=== PATIENT | male | born 1950 | race Caucasian/White ===

== ENCOUNTER 2017-05-19 05:36 | Inpatient (IN) | payer MEDICARE ==
[2017-05-11 12:03] LABS: PRE OP PROTIME 10.1 SECONDS (9.0-12.0)
[~2017-05-19] VITALS: Ht 172.7 cm; Wt 105.1 kg
[2017-05-19] VITALS (18 sets, daily range): BP systolic 89–145; BP diastolic 44–93
[~2017-05-19 05:36] MED LIST: LOSA50TA3 PO; VANCOMYCIN INJ 1000 MG in NORMAL SALINE 250ml IV.SOLN IV ONE; cefazolin/dext.iso 2gm/50ml 50 ML IV ONE; famotidine 20mg tablet PO ONE; ringers solution, lacted 1,000 ML IV SCH
[2017-05-19] MEDS ORDERED: LIDOcaine 1% (10mg/ml) 2ml vial ONE (06:12)
[2017-05-19] MEDS ORDERED: ketorolac trometh. 30mg/ml inj. ONE (06:39)
[2017-05-19] MEDS ORDERED: ROPIVAcaine 0.5% (5mg/ml) 30ml vial ONE ×2 (06:39→07:21)
[2017-05-19] MEDS ORDERED: cloNIDine hcl/PF 100mcg/ml inj ONE (07:21)
[2017-05-19] MEDS ORDERED: tetracaine 1% (10mg/ml) pres. free inj. ONE (07:22)
[2017-05-19] MEDS ORDERED: fentaNYL/PF 50MCG/1 ML 2ML syringe ONE (07:27)
[2017-05-19] MEDS ORDERED: MIDAZolam 1mg/ml 10ml vial ONE (07:27)
[2017-05-19] MEDS ORDERED: MORPHINE SULFATE/PF 0.5 MG/ML 10ML AMPUL ONE (07:27)
[2017-05-19] MEDS ORDERED: propofol inj 20 ML IV ONE (08:14)
[2017-05-19] MEDS ORDERED: naloxone 2mg/2ml inj 2 MG in normal saline 500ml IV soln 500 ML IV PRN (08:48)
[2017-05-19] MEDS ORDERED: ringers solution, lacted 1,000 ML IV SCH (08:48)
[2017-05-19] MEDS ORDERED: proCHLORperazine 10 MG/2 ml inj IV PRN (08:50)
[2017-05-19] MEDS ORDERED: ondansetron/PF 4mg/2ml inj IV PRN ×3 (08:50→11:25)
[2017-05-19] MEDS ORDERED: morphine 2 MG/ML inj. syringe IV PRN ×3 (08:50→13:20)
[2017-05-19] MEDS ORDERED: meperidine/PF 25mg/ml syringe IV PRN ×3 (08:50)
[2017-05-19] MEDS ORDERED: diphenhydrAMINE 50 mg/ml inj IV PRN (08:50)
[2017-05-19] MEDS ORDERED: ceFAZolin 1000mg inj ONE (11:16)
[2017-05-19] MEDS ORDERED: diphenhydrAMINE 25mg capsule PO PRN ×2 (11:25)
[2017-05-19] MEDS ORDERED: bisacodyl 10mg suppository rectal RC PRN (11:25)
[2017-05-19] MEDS ORDERED: HYDROcodone/acetaminophen 10/325mg tab PO PRN ×3 (11:25→13:20)
[2017-05-19] MEDS ORDERED: metoclopramide 5 mg/ml inj IV PRN (11:25)
[2017-05-19] MEDS ORDERED: naloxone 0.4 mg/ml inj IV PRN (11:25)
[2017-05-19] MEDS ORDERED: magnesium hydroxide 30ml (MOM) UD suspension PO PRN (11:25)
[2017-05-19] MEDS ORDERED: mag hydrox/Alum hydrox/simeth 30ml oral suspension PO PRN (11:25)
[2017-05-19] MEDS ORDERED: HYDROmorphone/NS 1 mg/ml CADD 50 ML IV SCH (11:25)
[2017-05-19] MEDS ORDERED: acetaminophen 325mg tablet PO PRN (11:25)
[2017-05-19] MEDS ORDERED: CADD PCA waste documentation MC PRN (11:25)
[2017-05-19] MEDS: gabapentin 300mg capsule PO SCH ×2 (13:44→19:25)
[2017-05-19] MEDS: potassium cl 20mEq in 1/2 NS 1,000 ML IV SCH ×3 (13:45→23:56)
[2017-05-19] MEDS: cefazolin 1gm/NS 100mL 100 ML IV SCH ×2 (15:25→23:53)
[2017-05-19] MEDS: ascorbic acid 500mg tablet PO SCH (19:25)
[2017-05-19] MEDS: celeCOXIB 100mg capsule PO SCH (19:25)
[2017-05-19] MEDS: HYDROcodone/acetaminophen 10/325mg tab PO PRN (19:26)
[2017-05-19] MEDS ORDERED: sennosides/docusate sodium tablet PO SCH (20:00)
[2017-05-19] MEDS ORDERED: vancomycin/NS 1 GM ADD-VANTAGE 250 ML IV SCH (20:00)
[2017-05-19] MEDS: sennosides 8.6mg tablet PO SCH (22:52)
[2017-05-20 01:45] VITALS: BP 110/69
[2017-05-20] MEDS: HYDROcodone/acetaminophen 10/325mg tab PO PRN ×3 (05:11→20:08)
[2017-05-20 06:00] VITALS: BP 122/66
[2017-05-20 06:27] LABS: BASOPHILS % (AUTO) 0.4 % (0-1); EOSINOPHILS # (AUTO) 0.1 X10'3 (0-0.9); EOSINOPHILS % (AUTO) 1.8 % (0-6); HEMATOCRIT 31.5 % (42.0-52.0); MEAN CORPUSCULAR HEMOGLOBIN 31.9 PG (27.0-31.0); MEAN CORPUSCULAR VOLUME 91.1 FL (78-98); MEAN PLATELET VOLUME 6.2 FL (7.4-10.4); MONOCYTES # (AUTO) 0.7 X10'3 (0-0.9); MONOCYTES % (AUTO) 10.4 % (2-12); NEUTROPHILS # (AUTO) 3.7 X10'3 (1.8-7.7); NEUTROPHILS % (AUTO) 56.4 % (42-75); PLATELET COUNT 179 X10'3 (140-440); RED BLOOD COUNT 3.46 X10'6 (4.70-6.10); RED CELL DISTRIBUTION WIDTH 13.3 % (11.5-14.5); WHITE BLOOD COUNT 6.6 X10'3 (4.5-11.0)
[2017-05-20 06:49] LABS: ANION GAP 5 (8-16); CHLORIDE 106 MMOL/L (99-107); POTASSIUM 4.2 MMOL/L (3.5-5.1); SODIUM 140 MMOL/L (135-145); TOTAL CARBON DIOXIDE 28.7 MMOL/L (24-32)
[2017-05-20] MEDS: multivitamins, therapeutics tablet PO SCH (07:25)
[2017-05-20] MEDS: losartan 50mg tablet PO SCH (07:25)
[2017-05-20] MEDS: gabapentin 300mg capsule PO SCH ×3 (07:25→20:06)
[2017-05-20] MEDS: enoxaparin 40mg/0.4ml syringe SQ SCH (07:26)
[2017-05-20] MEDS: ascorbic acid 500mg tablet PO SCH ×2 (07:26→20:08)
[2017-05-20] MEDS: celeCOXIB 100mg capsule PO SCH ×2 (07:26→20:06)
[2017-05-20] MEDS ORDERED: HYDR-3972 PO (08:03)
[2017-05-20] MEDS ORDERED: ENOX40DI11 SQ (08:03)
[2017-05-20] MEDS ORDERED: WALKERFR (08:04)
[2017-05-20 10:00] VITALS: BP 117/69
[2017-05-20] MEDS ORDERED: FLU VACC QS2017-18 36MOS UP/PF 60 MCG/0.5 ML SYRINGE IMVAC ONE (10:00)
[2017-05-20] MEDS ORDERED: pneumococcal 23-VAL P-sac vacc 25 mcg/0.5ml vial IMVAC ONE (10:00)
[2017-05-20] MEDS: potassium cl 20mEq in 1/2 NS 1,000 ML IV SCH (10:06)
[2017-05-20 13:58] VITALS: BP 127/67
[2017-05-20 18:35] VITALS: BP 116/69
[2017-05-20] MEDS: sennosides 8.6mg tablet PO SCH (20:06)
[2017-05-20 22:00] VITALS: BP 136/78
[2017-05-21] MEDS: HYDROcodone/acetaminophen 10/325mg tab PO PRN ×2 (05:44→09:55)
[2017-05-21 06:00] VITALS: BP 133/81
[2017-05-21 06:43] LABS: BASOPHILS % (AUTO) 0.3 % (0-1); EOSINOPHILS # (AUTO) 0.2 X10'3 (0-0.9); EOSINOPHILS % (AUTO) 2.4 % (0-6); HEMATOCRIT 31.1 % (42.0-52.0); LYMPHOCYTES % (AUTO) 30.9 % (21-51); MEAN CORPUSCULAR HEMOGLOBIN 31.9 PG (27.0-31.0); MEAN CORPUSCULAR HGB CONC 35.3 % (33.0-36.5); MEAN CORPUSCULAR VOLUME 90.4 FL (78-98); MEAN PLATELET VOLUME 6.6 FL (7.4-10.4); MONOCYTES # (AUTO) 0.6 X10'3 (0-0.9); MONOCYTES % (AUTO) 9.2 % (2-12); NEUTROPHILS # (AUTO) 3.8 X10'3 (1.8-7.7); NEUTROPHILS % (AUTO) 57.2 % (42-75); PLATELET COUNT 186 X10'3 (140-440); RED BLOOD COUNT 3.44 X10'6 (4.70-6.10); RED CELL DISTRIBUTION WIDTH 13.7 % (11.5-14.5); WHITE BLOOD COUNT 6.6 X10'3 (4.5-11.0)
[2017-05-21] MEDS: celeCOXIB 100mg capsule PO SCH (08:23)
[2017-05-21] MEDS: multivitamins, therapeutics tablet PO SCH (08:24)
[2017-05-21] MEDS: losartan 50mg tablet PO SCH (08:24)
[2017-05-21] MEDS: gabapentin 300mg capsule PO SCH (08:24)
[2017-05-21] MEDS: ascorbic acid 500mg tablet PO SCH (08:24)
[2017-05-21] MEDS: enoxaparin 40mg/0.4ml syringe SQ SCH (08:25)
[2017-05-21 10:30] VITALS: BP 134/73
== END 2017-05-21 13:00 | disposition home or self-care (01) | DRG 470 ==
LOC: PAS IN 05:36 → EDSTATUS 09:30 → ORTHO 4S 12:54
PROVIDERS: ADMIT Orthopaedic Surgery; ATTEND Orthopaedic Surgery
PROC: 8E0YXBZ Computer Assisted Procedure of Lower Extremity (ICD-10-PCS; 2017-05-19)
PROC: 0SRC0J9 Replacement of Right Knee Joint with Synthetic Substitute, Cemented, Open Approach (ICD-10-PCS; principal; 2017-05-19 07:32)
DX: M17.11 Unilateral primary osteoarthritis, right knee (principal); D62 Acute posthemorrhagic anemia; E66.01 Morbid (severe) obesity due to excess calories; I10 Essential (primary) hypertension; Z79.899 Other long term (current) drug therapy; Z87.891 Personal history of nicotine dependence; Z68.35 Body mass index [BMI] 35.0-35.9, adult
CPT/HCPCS: 36415; 80051; 85025; 85610; 85730; 87070; 90732; 97110; 97116; 97161; A6250; A6255; A6258; A6449; A7000; C1713; C1758; C1776; J0690; J0735; J1650; J1885; J2250; J2274; J2704; J2795; J3010; J3370; J3490; J7030; J7120

== ENCOUNTER 2019-11-19 13:23 | Observation (INO) | payer MEDICARE ==
[~2019-11-19] VITALS: Ht 172.7 cm; Wt 111.8 kg
[~2019-11-19 13:23] MED LIST changes: +ENOX40DI11 SQ; +HYDR-3972 PO; -VANCOMYCIN INJ 1000 MG in NORMAL SALINE 250ml IV.SOLN IV ONE; +WALKERFR; -cefazolin/dext.iso 2gm/50ml 50 ML IV ONE; -famotidine 20mg tablet PO ONE; -ringers solution, lacted 1,000 ML IV SCH
[2019-11-19 13:50] LABS: BASOPHILS # (AUTO) 0.1 X10'3 (0-0.2); BASOPHILS % (AUTO) 0.9 % (0-1); EOSINOPHILS % (AUTO) 0.1 % (0-6); HEMATOCRIT 43.3 % (42.0-52.0); HEMOGLOBIN 14.6 g/dl (14.0-17.9); LYMPHOCYTES # (AUTO) 1.2 X10'3 (1.1-4.8); LYMPHOCYTES % (AUTO) 15.3 % (21-51); MEAN CORPUSCULAR HEMOGLOBIN 31.8 PG (27.0-31.0); MEAN CORPUSCULAR HGB CONC 33.8 g/dL (33.0-36.5); MEAN CORPUSCULAR VOLUME 94.1 FL (78-98); MEAN PLATELET VOLUME 6.6 FL (7.4-10.4); MONOCYTES # (AUTO) 0.3 X10'3 (0-0.9); MONOCYTES % (AUTO) 3.3 % (2-12); NEUTROPHILS # (AUTO) 6.5 X10'3 (1.8-7.7); NEUTROPHILS % (AUTO) 80.4 % (42-75); PLATELET COUNT 273 X10'3 (140-440); RED CELL DISTRIBUTION WIDTH 14.3 % (11.5-14.5); WHITE BLOOD COUNT 8.1 X10'3 (4.5-11.0)
[2019-11-19 13:58] LABS: ALANINE AMINOTRANSFERASE 35 U/L (12-78); ALBUMIN 3.8 G/DL (3.4-5.0); ALKALINE PHOSPHATASE 93 IU/L (46-116); ANION GAP 7 (8-16); ASPARTATE AMINO TRANSFERASE 20 U/L (10-37); BILIRUBIN,TOTAL 0.4 MG/DL (0.1-1.0); BLOOD UREA NITROGEN 20 MG/DL (7-18); BUN/CREATININE RATIO 18.7 (5.4-32.0); CALCIUM 9.1 MG/DL (8.5-10.1); CHLORIDE 104 MMOL/L (99-107); CREATININE 1.07 MG/DL (0.60-1.10); GLUCOSE 136 MG/DL (70-104); POTASSIUM 4.2 MMOL/L (3.5-5.1); SODIUM 135 MMOL/L (135-145); TOTAL CARBON DIOXIDE 23.7 MMOL/L (24-32); TOTAL PROTEIN 7.8 G/DL (6.4-8.2); eGFR 69 ML/MIN
[2019-11-19] MEDS ORDERED: morphine 2 MG/ML inj. syringe IV PRN ×2 (14:55)
[2019-11-19] MEDS ORDERED: mag hydrox/Alum hydrox/simeth 30ml oral suspension PO PRN (14:55)
[2019-11-19] MEDS ORDERED: acetaminophen 325mg tablet PO PRN (14:55)
[2019-11-19] MEDS ORDERED: ondansetron/PF 4mg/2ml inj IV PRN (14:55)
[2019-11-19] MEDS ORDERED: magnesium hydroxide 30ml (MOM) UD suspension PO PRN (14:55)
[2019-11-19] MEDS ORDERED: ASPI-611 PO (15:04)
[2019-11-19] MEDS: furosemide 20 MG/2 ML vial IV SCH ×2 (15:30→20:57)
--- NOTE | 2019-11-19 17:22 | NUR ---
Patient in room ED 5. I have received report from MOUNIKA lucas RN and had the opportunity to ask questions and assume patient care.
[2019-11-19 17:45] VITALS: BP 142/86
[2019-11-19 18:00] VITALS: BP 138/65
--- NOTE | 2019-11-19 18:15 | NUR ---
Problems reprioritized. Patient report given, questions answered & plan of care reviewed with .HELIO King
--- NOTE | 2019-11-19 18:39 | NUR ---
1745 RECEIVED PT INTO ROOM 313,ORIENTED TO SURROUNDINGS,DENIES PAIN OR DIZINESS,AGREE WITH [employer] WILL MONITER CLOSELY
[2019-11-19 20:00] VITALS: BP 138/65
[2019-11-19 22:00] VITALS: BP 112/85
[2019-11-20 02:00] VITALS: BP 118/88
[2019-11-20 02:17] LABS: BASOPHILS % (AUTO) 0.5 % (0-1); EOSINOPHILS # (AUTO) 0.1 X10'3 (0-0.9); EOSINOPHILS % (AUTO) 1.8 % (0-6); HEMATOCRIT 44.6 % (42.0-52.0); HEMOGLOBIN 15.1 g/dl (14.0-17.9); LYMPHOCYTES # (AUTO) 2.8 X10'3 (1.1-4.8); LYMPHOCYTES % (AUTO) 39.7 % (21-51); MEAN CORPUSCULAR HEMOGLOBIN 32.2 PG (27.0-31.0); MEAN CORPUSCULAR HGB CONC 33.8 g/dL (33.0-36.5); MEAN CORPUSCULAR VOLUME 95.3 FL (78-98); MEAN PLATELET VOLUME 6.3 FL (7.4-10.4); MONOCYTES # (AUTO) 0.5 X10'3 (0-0.9); MONOCYTES % (AUTO) 6.9 % (2-12); NEUTROPHILS # (AUTO) 3.5 X10'3 (1.8-7.7); NEUTROPHILS % (AUTO) 51.1 % (42-75); PLATELET COUNT 268 X10'3 (140-440); RED BLOOD COUNT 4.68 X10'6 (4.70-6.10); RED CELL DISTRIBUTION WIDTH 14.5 % (11.5-14.5)
[2019-11-20 02:34] LABS: ALBUMIN 3.7 G/DL (3.4-5.0); ANION GAP 7 (8-16); BLOOD UREA NITROGEN 20 MG/DL (7-18); BUN/CREATININE RATIO 15.7 (5.4-32.0); CALCIUM 8.7 MG/DL (8.5-10.1); CHLORIDE 102 MMOL/L (99-107); CHOL/HDL RATIO 5.3 (0.00-4.99); CHOLESTEROL 208 MG/DL (0-200); CREATININE 1.27 MG/DL (0.60-1.10); GLUCOSE 117 MG/DL (70-104); HDL CHOLESTEROL 39 MG/DL (35-60); LDL CHOLESTEROL 138 MG/DL (50-100); POTASSIUM 3.4 MMOL/L (3.5-5.1); SODIUM 137 MMOL/L (135-145); TOTAL CARBON DIOXIDE 27.6 MMOL/L (24-32); TRIGLYCERIDES 179 MG/DL (20-135); eGFR 57 ML/MIN
[2019-11-20 06:00] VITALS: BP 132/70
--- NOTE | 2019-11-20 06:30 | NUR ---
Patient in room MED 313. I have received report from Javier CADET and had the opportunity to ask questions and assume patient care.
--- NOTE | 2019-11-20 06:35 | NUR ---
Problems reprioritized. Patient report given, questions answered & plan of care reviewed with Soraida CADET.
[2019-11-20 10:00] VITALS: BP 124/83
[2019-11-20] MEDS ORDERED: FURO-150 PO (10:02)
[2019-11-20] MEDS ORDERED: magnesium Cl slow-release 64mg tablet PO PRN (10:35)
[2019-11-20] MEDS ORDERED: potassium CL 10mEq/100ml bag 100 ML IV PRN (10:35)
[2019-11-20] MEDS ORDERED: potassium Cl 20 mEq SR tablet PO PRN (10:35)
[2019-11-20] MEDS ORDERED: magnesium 4gm in 100ml NS 100 ML IV PRN (10:35)
[2019-11-20] MEDS: furosemide 20 MG/2 ML vial IV SCH (10:43)
[2019-11-20] MEDS: potassium Cl 20 mEq SR tablet PO PRN ×2 (10:55→14:53)
[2019-11-20 14:00] VITALS: BP 116/79
--- NOTE | 2019-11-20 14:44 | NUR ---
[address] [facility] [employer] stated the Carotid's were negative. [id number] ACCE Thanks
--- NOTE | 2019-11-20 15:05 | NUR ---
Discharge instructions given. Pt has remained stable, VSS, and no dizziness or syncope. IV d/c ed and had no S/S of complications. Pt stated understanding to all discharge instructions. All belongings accounted for. Pt escorted to lobby to private vehicle.
--- NOTE | 2019-11-21 10:28 | NUR ---
Case Management DC follow up: spoke to pt spouse, Suzanne, via telephone. s/p:near syncope episode Reports:"doing fine, outside splitting wood w/the wood splitter" agrees to ensure good hydration. Denies for pt: acute/continuous CP, emergent SOB, resp distress, N/V, OJEDA, blurry vision, vertigo, syncope episodes, weakness,emergent general pain, abd tenderness/distension, bladder pain, dysuria, polyuria, hematuria, retention, constipation, diarrhea, fever, unexplained bleeding, bruising. Verbalizes understanding of s/s that warrant 9-11/ER visit for further evaluation. Verbalizes understanding of new Rx: lasix, will be picking up today 11/21/19, and why prescribed, resumes current Rx, taking as ordered, no ase r/t polypharmacy. Went over orthostatic hypotension protocol r/t lasix as a precaution. pt spouse verbalizes understanding. Acknowledges need to schedule/keep follow up appts w/ PCP/[facility], waiting for pt record of recent visit to arrive at office. Verbalizes compliance w/DC aftercare. Needs met, questions answered at DC, no further questions or concerns at this time.
== END 2019-11-20 15:10 | disposition home or self-care (01) ==
LOC: ER 13:24 → ED HOLD 14:52 → MED 3N 17:35
PROVIDERS: ADMIT Internal Medicine; ATTEND Internal Medicine
DX: R55 Syncope and collapse (principal); I10 Essential (primary) hypertension; M19.90 Unspecified osteoarthritis, unspecified site; Z87.891 Personal history of nicotine dependence; Z79.82 Long term (current) use of aspirin; Z79.899 Other long term (current) drug therapy; Z88.8 Allergy status to other drugs, medicaments and biological substances
CPT/HCPCS: 36415; 71045; 80048; 80053; 80061; 83036; 83880; 84484; 85025; 87081; 93005; 93306; 93880; 95816; 96374; 96376; 99285; G0378; J1940

== ENCOUNTER 2024-01-16 06:26 | Day surgery (SDC) | payer MEDICARE, OTHER ==
[~2024-01-16] VITALS: Ht 170.2 cm; Wt 116.6 kg
[2024-01-16] VITALS (10 sets, daily range): BP systolic 122–145; BP diastolic 58–82; PULSE 47–67; RESP 10–17; TEMP 98.3; O2SAT 94–97
[~2024-01-16 06:26] MED LIST changes: +ASPI-611 PO; -ENOX40DI11 SQ; +FURO-150 PO; -HYDR-3972 PO; +LOSA-416 PO; -LOSA50TA3 PO; -WALKERFR
[2024-01-16] MEDS ORDERED: OMEG100037 PO (06:50)
[2024-01-16] MEDS ORDERED: UBID100C16 PO (06:50)
[2024-01-16] MEDS ORDERED: LORazepam 0.5 MG tablet PO PRN (06:50)
[2024-01-16] MEDS ORDERED: FLUO118.8 EACH EAR (06:50)
[2024-01-16 07:31] LABS: BASOPHILS % (AUTO) 0.7 % (0-1); EOSINOPHILS # (AUTO) 0.2 X10'3 (0-0.9); EOSINOPHILS % (AUTO) 2.3 % (0-6); HEMATOCRIT 43.7 % (42.0-52.0); HEMOGLOBIN 14.6 g/dl (14.0-17.9); LYMPHOCYTES # (AUTO) 2.8 X10'3 (1.1-4.8); LYMPHOCYTES % (AUTO) 42.7 % (21-51); MEAN CORPUSCULAR HEMOGLOBIN 32.6 PG (27.0-31.0); MEAN CORPUSCULAR HGB CONC 33.5 g/dL (33.0-36.5); MEAN CORPUSCULAR VOLUME 97.3 FL (78-98); MEAN PLATELET VOLUME 6.8 FL (7.4-10.4); MONOCYTES # (AUTO) 0.5 X10'3 (0-0.9); MONOCYTES % (AUTO) 6.9 % (2-12); NEUTROPHILS # (AUTO) 3.1 X10'3 (1.8-7.7); NEUTROPHILS % (AUTO) 47.4 % (42-75); PLATELET COUNT 235 X10'3 (140-440); PROTHROMBIN TIME 10.6 SECONDS (9.0-12.0); RED BLOOD COUNT 4.49 X10'6 (4.70-6.10); RED CELL DISTRIBUTION WIDTH 14.1 % (11.5-14.5); WHITE BLOOD COUNT 6.6 X10'3 (4.5-11.0)
[2024-01-16 07:34] LABS: ALBUMIN 3.6 G/DL (3.4-5.0); ANION GAP 7 (8-16); BLOOD UREA NITROGEN 17 MG/DL (7-18); BUN/CREATININE RATIO 16.3 (10.0-20.0); CALCIUM 8.6 MG/DL (8.5-10.1); CHLORIDE 107 MMOL/L (99-107); CREATININE 1.04 MG/DL (0.60-1.10); GLUCOSE 127 MG/DL (70-104); POTASSIUM 4.2 MMOL/L (3.5-5.1); SODIUM 142 MMOL/L (135-145); TOTAL CARBON DIOXIDE 28.5 MMOL/L (24-32); eCRCL 61 ML/MIN; eGFR 70 ML/MIN
[2024-01-16] MEDS: diphenhydrAMINE 25mg capsule PO PRN (08:43)
[2024-01-16] MEDS ORDERED: verapamil 2.5 mg/ml inj IV ONE (08:43)
[2024-01-16] MEDS ORDERED: LIDOcaine 1% (10mg/ml) 2ml vial ONE (08:43)
[2024-01-16] MEDS: normal saline 1,000 ML IV SCH (08:44)
[2024-01-16] MEDS: sodium bicarbonate 1meq/ml syr 150 ML in dextrose 5%-water 1,000 ML IV ONE (08:44)
[2024-01-16] MEDS ORDERED: midazolam 1 mg/ML 2ml injection ONE ×2 (08:44→10:08)
[2024-01-16] MEDS ORDERED: iohexol 350 MG/ML 50ML vial IV ONE ×3 (08:44→11:11)
[2024-01-16] MEDS ORDERED: heparin 1,000unit/ml 10ml vial 10 ML ONE (08:44)
[2024-01-16] MEDS ORDERED: fentaNYL/PF 50MCG/1 ML 2ML syringe ONE (08:44)
[2024-01-16] MEDS ORDERED: iohexol 350MG/ML 100ml bottle IV ONE (08:44)
[2024-01-16] MEDS ORDERED: nitroGLYCERIN 500mcg/5mL D5W 5 ML IV ONE (08:46)
[2024-01-16] MEDS ORDERED: LIDOcaine 1% 30ml preserv. free vial ONE (10:41)
== END 2024-01-16 15:05 | disposition home or self-care (01) ==
LOC: SSTAY O 06:26
PROVIDERS: ATTEND Internal Medicine Cardiovascular Disease
DX: R94.30 Abnormal result of cardiovascular function study, unspecified (principal); I25.10 Atherosclerotic heart disease of native coronary artery without angina pectoris; I10 Essential (primary) hypertension; E78.00 Pure hypercholesterolemia, unspecified; F10.90 Alcohol use, unspecified, uncomplicated; Z87.891 Personal history of nicotine dependence; Z79.82 Long term (current) use of aspirin; Z79.899 Other long term (current) drug therapy; Z82.49 Family history of ischemic heart disease and other diseases of the circulatory system
CPT/HCPCS: 36415; 80048; 83735; 85025; 85610; 93005; 93458; 93571; A6258; A6402; C1751; C1760; C1769; C1894; J1644; J2001; J2250; J3010; J3490; J7030; J7070; Q0163; Q9967; Z7610; 99152; 99153; A6449